=== PATIENT | female | born 1990 | race Caucasian/White ===

== ENCOUNTER 2016-12-20 10:19 | Emergency (ER) | payer BC ==
[2016-12-20 10:24] VITALS: RESP 16; TEMP 97.9
--- NOTE | 2016-12-20 11:16 | EDPHY ---
H & P Time Seen by Provider: 12/20/16 10:45 HPI/ROS: CHIEF COMPLAINT: Left scapular pain HISTORY OF PRESENT ILLNESS: The patient is a 26-year-old female who presents emergency department with left scapular pain. Patient states her symptoms started while sleeping. She rolled over and felt a sudden pain. It is worse with breathing and movement. She states that if her friend bumped into her and caused her to have discomfort as well. She feels as though it is under her left scapula. She complains of discomfort when she moves her left arm. She denies fevers or chills. No cough or shortness of breath. She has had no leg pain or swelling. No previous DVT or PE. She recently returned from [facility] REVIEW OF SYSTEMS: My complete review of systems is negative except as mentioned in the HPI. Past Medical/Surgical History: Negative Past surgical history: Negative Social history: The patient does not smoke Smoking Status: Never smoked Physical Exam: Vitals noted GENERAL: Well-appearing, in no acute distress, alert. HEENT: Eyes normal to inspection, normal pharynx, no signs of dehydration. NECK: No thyromegaly, no lymphadenopathy, supple. RESPIRATORY: Clear to auscultation bilaterally, no rales, rhonchi or wheezing. CVS: Regular rate and rhythm, no rubs, murmurs, or gallops. ABDOMEN: Soft, nontender, nondistended, no organomegaly. BACK: Normal to inspection, no CVA tenderness. There is no scapular tenderness. No palpable muscle spasm. SKIN: Normal color, no rash, warm, dry. No pallor. EXTREMITIES: No pedal edema, no calf tenderness, no Homans sign or cords, no joint swelling. NEURO/PSYCH: Alert and oriented x3, normal mood and affect, normal motor sensory exam. No obvious cranial nerve deficit. Constitutional: Initial Vital Signs Temperature (C) 36.6 C 12/20/16 10:22 Heart Rate 112 H 12/20/16 10:22 Respiratory Rate 16 12/20/16 10:22 Blood Pressure 125/84 H 12/20/16 10:22 O2 Sat (%) 96 12/20/16 10:22 O2 Delivery Mode Room Air Allergies/Adverse Reactions: minocycline Allergy (Verified 12/20/16 10:24) Sulfa (Sulfonamide Antibiotics) Allergy (Verified 12/20/16 10:24) Home Medications: Medication Instructions Recorded Cyclobenzaprine [Flexeril] 10 mg PO TID #15 tab 12/20/16 Hydrocodone/APAP 5/325 [Suffield 1 - 2 tab PO Q4 #13 tab 12/20/16 5/325 (RX)] Ibuprofen [Motrin (*)] 600 mg PO TID #15 tab 12/20/16 Medical Decision Making - Diagnostics Imaging Results: Imaging Impressions Chest X-Ray 12/20/16 11:16 Impression: Normal. No source for left shoulder pain identified. ED Course/Re-evaluation: In the emergency department I discussed possible etiologies with the patient. I answered all her questions. An IV was placed. Patient given Toradol 30 mg IV for pain control. She is given Valium 5 mg IV for muscle relaxation. Laboratory studies were ordered. Patient has a mildly low sodium 132. Her other electrolytes are normal. Her CBC is normal. D-dimer is negative. Chest x-ray: Please refer the dictated report. Negative I rechecked the patient while here. She was stable. Her symptoms improved after the medication. She had no shortness of breath. On re-examination she had no pleuritic chest pain. She is given warnings prior to leaving. She will return with worsening symptoms. Differential Diagnosis: My differential includes but is not limited to pleurisy, PE, pneumothorax, shoulder strain, spasm - Data Points Laboratory Results: Laboratory Results 12/20/16 11:57 12/20/16 11:57 12/20/16 12/20/16 12/20/16 11:57 11:57 11:57 WBC RBC Hgb Hct MCV MCH MCHC RDW Plt Count MPV Neut % (Auto) Lymph % (Auto) Dickens % (Auto) Eos % (Auto) Baso % (Auto) Nucleat RBC Rel Count Absolute Neuts (auto) Absolute Lymphs (auto) Absolute Monos (auto) Absolute Eos (auto) Absolute Basos (auto) Absolute Nucleated RBC Immature Gran % Immature Gran # D-Dimer < 0.27 ug/mLFEU ug/mLFEU (0.00-0.50) Sodium 132 mEq/L L mEq/L (134-144) Potassium 4.0 mEq/L mEq/L (3.5-5.2) Chloride 96 mEq/L L mEq/L (97-110) Carbon Dioxide 24 mEq/l mEq/l (22-31) Anion Gap 12 mEq/L mEq/L (8-16) BUN 11 mg/dL mg/dL (7-23) Creatinine 0.7 mg/dL mg/dL (0.6-1.0) Estimated GFR > 60 Glucose 91 mg/dL mg/dL (70-100) Calcium 9.5 mg/dL mg/dL (8.5-10.4) Beta HCG, Qual NEGATIVE 12/20/16 11:57 WBC 5.33 10^3/uL 10^3/uL (3.80-9.50) RBC 4.90 10^6/uL 10^6/uL (4.18-5.33) Hgb 15.3 g/dL g/dL (12.6-16.3) Hct 44.7 % % (38.0-47.0) MCV 91.2 fL fL (81.5-99.8) MCH 31.2 pg pg (27.9-34.1) MCHC 34.2 g/dL g/dL (32.4-36.7) RDW 11.8 % % (11.5-15.2) Plt Count 271 10^3/uL 10^3/uL (150-400) MPV 10.2 fL fL (8.7-11.7) Neut % (Auto) 57.8 % % (39.3-74.2) Lymph % (Auto) 30.0 % % (15.0-45.0) Dickens % (Auto) 10.1 % % (4.5-13.0) Eos % (Auto) 1.1 % % (0.6-7.6) Baso % (Auto) 0.8 % % (0.3-1.7) Nucleat RBC Rel Count 0.0 % % (0.0-0.2) Absolute Neuts (auto) 3.08 10^3/uL 10^3/uL (1.70-6.50) Absolute Lymphs (auto) 1.60 10^3/uL 10^3/uL (1.00-3.00) Absolute Monos (auto) 0.54 10^3/uL 10^3/uL (0.30-0.80) Absolute Eos (auto) 0.06 10^3/uL 10^3/uL (0.03-0.40) Absolute Basos (auto) 0.04 10^3/uL 10^3/uL (0.02-0.10) Absolute Nucleated RBC 0.00 10^3/uL 10^3/uL (0-0.01) Immature Gran % 0.2 % % (0.0-1.1) Immature Gran # 0.01 10^3/uL 10^3/uL (0.00-0.10) D-Dimer Sodium Potassium Chloride Carbon Dioxide Anion Gap BUN Creatinine Estimated GFR Glucose Calcium Beta HCG, Qual Medications Given: Discontinued Medications Diazepam (Valium Injection) 5 mg IVP EDNOW ONE Stop: 12/20/16 11:18 Last Admin: 12/20/16 11:25 Dose: 5 mg Ketorolac Tromethamine (Toradol) 30 mg IVP EDNOW ONE Stop: 12/20/16 11:18 Last Admin: 12/20/16 11:25 Dose: 30 mg Departure - Departure Disposition: Home, Routine, Self-Care Clinical Impression: Back pain Qualifiers: Back pain location: thoracic back pain Chronicity: acute Back pain laterality: left Qualified Code(s): M54.6 - Pain in thoracic spine Condition: Good Instructions: Back Pain (ED) Additional Instructions: Return with increasing pain, fever, shortness of breath, leg pain, swelling or any other concerns. Referrals: Kathryn Kelley MD [Medical Doctor] - 2-3 days without fail Prescriptions: Cyclobenzaprine [Flexeril] 10 mg PO TID #15 tab Hydrocodone/APAP 5/325 [Suffield 5/325 (RX)] 1 - 2 tab PO Q4 #13 tab Ibuprofen [Motrin (*)] 600 mg PO TID #15 tab
[2016-12-20] MEDS ORDERED: KETOROLAC 30 MG/1 ML SDV IVP ONE (11:17)
[2016-12-20] MEDS ORDERED: DIAZEPAM 10 MG/2 ML SYR IVP ONE (11:17)
[2016-12-20 12:20] LABS: % IMMATURE GRANULYOCYTES 0.2 % (0.0-1.1); ABSOLUTE IMMATURE GRANULOCYTES 0.01 10^3/uL (0.00-0.10); ADD DIFF? NO; ADD MORPH? NO; ADD SCAN? NO; ATYPICAL LYMPHOCYTE FLAG 10 (0-99); FRAGMENT RBC FLAG 20 (0-99); HEMATOCRIT 44.7 % (38.0-47.0); HEMOGLOBIN 15.3 g/dL (12.6-16.3); LEFT SHIFT FLG 0 (0-99); LIPEMIA HEMOLYSIS FLAG 90 (0-99); MEAN CELL HEMOGLOBIN 31.2 pg (27.9-34.1); MEAN CELL HEMOGLOBIN CONCENTR. 34.2 g/dL (32.4-36.7); MEAN CELL VOLUME 91.2 fL (81.5-99.8); MEAN PLATELET VOLUME 10.2 fL (8.7-11.7); PLATELET CLUMPS FLAG 20 (0-99); PLATELET COUNT 271 10^3/uL (150-400); RED CELL DISTRIBUTION WIDTH 11.8 % (11.5-15.2)
[2016-12-20 12:25] LABS: ANION GAP 12 mEq/L (8-16); CALCIUM 9.5 mg/dL (8.5-10.4); CARBON DIOXIDE 24 mEq/l (22-31); CHLORIDE 96 mEq/L (97-110); CREATININE 0.7 mg/dL (0.6-1.0); GLOMERULAR FILTRATION RATE > 60; GLUCOSE 91 mg/dL (70-100); SODIUM 132 mEq/L (134-144)
[2016-12-20 13:55] VITALS: BP 120/65; PULSE 76; O2SAT 98
== END 2016-12-20 13:55 | disposition home or self-care (01) ==
DX: M54.6 Pain in thoracic spine (principal)
CPT/HCPCS: 96374; J1885